=== PATIENT | female | born 1995 | race Two or more races ===

== ENCOUNTER 2019-11-27 00:32 | Emergency (ER) | payer SELFPAY ==
[~2019-11-27] VITALS: Ht 172.7 cm; Wt 113.4 kg
[2019-11-27 00:37] VITALS: BP 149/84
--- NOTE | 2019-11-27 00:40 | NUR ---
PT BIBSELF C/O HEADACHE X 3 DAYS +NAUSEA. WORST ON THE PAST 3 HOURS. PT AAOX4, AMBULATORY, RR EVEN AND UNLABORED ON RA W/ NAD NOTED. PT CONNECTED TO THE MONITOR AND POX
--- NOTE | 2019-11-27 01:16 | NUR ---
[facility] [facility] in [facility] - 11/27/19 at 0215 by ANGEL SCARLETT GANDHI PT CAN STAY FOR OBSERVATION
[2019-11-27] MEDS ORDERED: diphenhydrAMINE HCL 50 MG/ML VIAL ONE (01:17)
[2019-11-27] MEDS ORDERED: METOCLOPRAMIDE HCL 10 MG/2 ML VIAL ONE (01:17)
[2019-11-27] MEDS ORDERED: KETOROLAC TROMETHAMINE 15 MG/ML VIAL ONE (01:17)
[2019-11-27] MEDS ORDERED: IV NS 0.9% 1,000 ML BAG IV ONE (01:30)
[2019-11-27] MEDS ORDERED: diphenhydrAMINE HCL 50 MG/ML VIAL IV ONE (01:30)
[2019-11-27] MEDS ORDERED: KETOROLAC TROMETHAMINE INJ 30 MG/ML VIAL IV ONE (01:30)
[2019-11-27] MEDS ORDERED: METOCLOPRAMIDE HCL 10 MG/2 ML VIAL IV ONE (01:30)
--- NOTE | 2019-11-27 02:15 | NUR ---
Patient discharged to home in stable condition. Written and verbal after care instructions given. Patient verbalizes understanding of instruction.IV removed. Catheter intact and site benign. Pressure and 4x4 applied to site. No bleeding noted.
== END 2019-11-27 02:16 | disposition home or self-care (01) ==
LOC: ER 00:36
DX: R51 Headache (principal); R11.2 Nausea with vomiting, unspecified
CPT/HCPCS: 96361; 96374; 96375; 99284; J1200; J1885; J2765; J7030